=== PATIENT | male | born 1980 | race Hispanic/Latino ===

== ENCOUNTER 2019-01-24 15:33 | Emergency (ER) | payer SELFPAY | END 2019-01-24 16:06 | disposition home or self-care (01) | LOC: ERS 15:33 | DX: R21 Rash and other nonspecific skin eruption (principal); B86 Scabies; F17.210 Nicotine dependence, cigarettes, uncomplicated | CPT/HCPCS: 99282 ==

== ENCOUNTER 2019-07-03 14:54 | Emergency (ER) | payer SELFPAY ==
[2019-07-03] MEDS ORDERED: Acetaminophen 500 MG TAB ONE (15:39)
[2019-07-03] MEDS ORDERED: Ibuprofen 800 MG TAB ONE (17:04)
--- NOTE | 2019-07-03 17:08 | RAD ---
PA AND LATERAL CHEST: History: Cough. FINDINGS: Comparison made with exam of 11-19-14. The heart size is normal. The lungs are expanded without lobar consolidation, pneumothoraces, or pleu ral effusions. No acute osseous abnormalities are seen. IMPRESSION: No radiographic evidence of acute cardiopulmonary process. POS: [facility]
== END 2019-07-03 17:10 | disposition home or self-care (01) ==
LOC: SCSER 14:54
DX: J06.9 Acute upper respiratory infection, unspecified (principal); F17.210 Nicotine dependence, cigarettes, uncomplicated
CPT/HCPCS: 71046; 87804

== ENCOUNTER 2019-10-22 13:21 | Emergency (ER) | payer SELFPAY ==
[2019-10-22] MEDS ORDERED: Adacel (T-DAP) 0.5 ML SYRINGE ONE (14:37)
[2019-10-22] MEDS ORDERED: Bacitracin 1 PK ONE (14:39)
== END 2019-10-22 15:17 | disposition home or self-care (01) ==
LOC: ERS 13:21
DX: S00.81XA Abrasion of other part of head, initial encounter (principal); F17.210 Nicotine dependence, cigarettes, uncomplicated; W22.8XXA Striking against or struck by other objects, initial encounter
CPT/HCPCS: 90471; 90715; 99283

== ENCOUNTER 2019-10-22 17:16 | Emergency (ER) | payer SELFPAY ==
--- NOTE | 2019-10-22 18:25 | CT ---
CT OF THE HEAD WITHOUT CONTRAST: 10/22/19 COMPARISON: None. HISTORY: Head trauma, pain. TECHNIQUE: Axial CT imaging at 5 mm intervals from vertex through skull base without contrast. FINDINGS: There is bilateral ethmoid air cell mucosal thickening. No displaced calvarial fracture. No intracran ial hemorrhage, midline shift, mass effect or ventricular enlargement. There is a subtle area of subc ortical white matter hypodensity within the posterolateral aspect of the left frontal lobe on image 1 8 and within the lateral aspect of the right frontal lobe on images 18 and 19. IMPRESSION: No intracranial hemorrhage or displaced calvarial fracture. Subtle areas of subcortical white matter hypodensity are noted bilaterally which may be on the basis of prior insult. A nonemergent brain MRI is advised to better assess subcentimeter focal areas of subcortical white matter hypodensity. POS: [facility]
== END 2019-10-22 18:45 | disposition home or self-care (01) ==
LOC: ERS 17:16
DX: S06.0X9A Concussion with loss of consciousness of unspecified duration, initial encounter (principal); F17.210 Nicotine dependence, cigarettes, uncomplicated; W22.8XXA Striking against or struck by other objects, initial encounter
CPT/HCPCS: 70450

== ENCOUNTER 2021-01-16 20:09 | Emergency (ER) | payer SELFPAY ==
[2021-01-16] MEDS ORDERED: HYDROcodone/Acetaminophen 5/325 mg Tablet ONE (21:46)
== END 2021-01-16 21:50 | disposition home or self-care (01) ==
LOC: ERS 20:09
DX: M10.9 Gout, unspecified (principal); F17.210 Nicotine dependence, cigarettes, uncomplicated

== ENCOUNTER 2022-02-11 20:25 | Emergency (ER) | payer SELFPAY ==
[2022-02-11] MEDS ORDERED: Morphine 4 MG/ML VIAL ONE (21:15)
== END 2022-02-11 21:39 | disposition home or self-care (01) ==
LOC: ERS 20:25
DX: M79.672 Pain in left foot (principal); M79.671 Pain in right foot; F17.210 Nicotine dependence, cigarettes, uncomplicated
CPT/HCPCS: 96372; 99283; J2270

== ENCOUNTER 2022-03-30 18:54 | Emergency (ER) | payer SELFPAY ==
[2022-03-30] MEDS ORDERED: Ibuprofen 800 MG TAB ONE (19:19)
== END 2022-03-30 19:59 | disposition home or self-care (01) ==
LOC: ERS 18:54
DX: L03.115 Cellulitis of right lower limb (principal); F17.210 Nicotine dependence, cigarettes, uncomplicated

== ENCOUNTER 2022-10-21 20:48 | Emergency (ER) | payer OTHER, SELFPAY | END 2022-10-21 21:30 | disposition left against medical advice (07) | LOC: ERS 20:48 | DX: F41.9 Anxiety disorder, unspecified (principal); F10.10 Alcohol abuse, uncomplicated | CPT/HCPCS: 99282 ==

== ENCOUNTER 2023-03-14 18:51 | Emergency (ER) | payer OTHER ==
[2023-03-14] MEDS ORDERED: Ketorolac Tromethamine 30 MG/ML VIAL ONE (19:18)
== END 2023-03-14 19:53 | disposition home or self-care (01) ==
LOC: ERS 18:51
DX: S00.11XA Contusion of right eyelid and periocular area, initial encounter (principal); S00.12XA Contusion of left eyelid and periocular area, initial encounter; F17.200 Nicotine dependence, unspecified, uncomplicated; Y04.2XXA Assault by strike against or bumped into by another person, initial encounter
CPT/HCPCS: 70450; 70486; 96372; J1885

== ENCOUNTER 2023-10-25 17:55 | Emergency (ER) | payer OTHER | END 2023-10-25 18:45 | disposition home or self-care (01) | LOC: ERS 17:55 | DX: Z00.00 Encounter for general adult medical examination without abnormal findings (principal); I10 Essential (primary) hypertension; F17.210 Nicotine dependence, cigarettes, uncomplicated; Z79.899 Other long term (current) drug therapy | CPT/HCPCS: 99283 ==